=== PATIENT | male | born 1995 | race Caucasian/White ===

== ENCOUNTER 2016-12-23 13:31 | Emergency (ER) | payer SELFPAY ==
[2016-12-23 13:50] VITALS: TEMP 98.5
--- NOTE | 2016-12-23 14:19 | RAD ---
EXAM DESCRIPTION: Lumbar spine 3 views CLINICAL HISTORY: 21 y/o ,M, pain 1 week post injury COMPARISON: None. IMPRESSION: No acute fracture. There is multilevel disk height loss throughout the lumbar spine indicating degenerative disc disease. Slight lucency in the pars region L5 but no spondylolisthesis. This is probably artifact or less likely a unilateral pars defect. No evidence of acute osseous abnormality Electronically signed by: Isaac Ryder MD 12/23/2016 14:18
--- NOTE | 2016-12-23 14:43 | ED.PDOC ---
History of Present Illness - General Chief Complaint: Back Pain or Injury Stated Complaint: back pain Time Seen by Provider: 12/23/16 13:44 Source: patient Exam Limitations: no limitations - History of Present Illness Initial Comments: The patient is a 21-year-old male presenting to the emergency room secondary to low back pain for the last week. He was at work and attempted to catch a palate that was falling. He has had low back discomfort slightly more to the left than right adjacent to L3-L5 since that time. It did not fall on top of him. There is no bruising or deformity. He has no radicular symptoms. He has no incontinence. He has no sensory or strength changes of his lower extremities. He has simply reporting persistent pain in the area primarily adjacent to the spine at that level. Timing/Duration: 1 week Severity: moderate Improving Factors: immobilization Worsening Factors: movement Associated Symptoms: denies symptoms Allergies/Adverse Reactions: Allergies NO KNOWN ALLERGY Allergy (Unverified 09/14/14 11:47) Home Medications: Ambulatory Orders Hiynmrfdaifwa-Osxd-Sylhmjlqvu [Fioricet] 1 ea PO Q8H PRN #21 tab 12/23/16 Cyclobenzaprine HCl [Flexeril] 5 mg PO TID PRN #30 tab 12/23/16 predniSONE [Prednisone] 20 mg PO DAILY #5 tab 12/23/16 Review of Systems - Review of Systems Constitutional: States: no symptoms reported EENTM: States: no symptoms reported Respiratory: States: no symptoms reported Cardiology: States: no symptoms reported Gastrointestinal/Abdominal: States: no symptoms reported Genitourinary: States: no symptoms reported Musculoskeletal: States: see HPI Skin: States: no symptoms reported Endocrine: States: no symptoms reported All other Systems: No Change from Baseline Past Medical History (General) - Patient Medical History Hx Stroke: No Hx Congestive Heart Failure: No Hx Diabetes: No Hx MRSA: Yes MRSA Source:: Wound Surgical History: no surgical history - Vaccination History Hx Tetanus, Diphtheria Vaccination: No Hx Influenza Vaccination: Yes Hx Pneumococcal Vaccination: No - Social History Hx Tobacco Use: No Hx Alcohol Use: Yes - occasional Hx Substance Use: No Hx Substance Use Treatment: No Hx Depression: No - Activities of Daily Living Hospice Agency (if applicable):: None - Female History Patient is a Female of Child Bearing Age (10 -59 yrs old): No Patient : No Family Medical History - Family History Mother Family History: No Known Living Status: Still Living Physical Exam - Physical Exam General Appearance: Alert, Comfortable, No apparent distress Eye Exam: bilateral normal Ears, Nose, Throat: normal ENT inspection, normal pharynx Neck: non-tender, full range of motion, supple Respiratory: no respiratory distress, no accessory muscle use Cardiovascular/Chest: normal peripheral pulses, no edema Peripheral Pulses: radial,right: 2+, radial,left: 2+, dorsalis pedis,right: 2+, dorsalis pedis,left: 2+ Gastrointestinal/Abdominal: normal bowel sounds, non tender, soft Rectal Exam: deferred Back Exam: no vertebral tenderness, other - see history of present illness Extremity: normal range of motion, non-tender, normal inspection, no pedal edema , no calf tenderness, normal capillary refill 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 X-ray of the lumbar spine shows no evidence of acute injury. He can use topical heat in the form of icy hot or Biofreeze or a heating pad. He needs to do stretches for his lower back. He will be written for Flexeril as a muscle relaxer, Fioricet as a pain medication and he will be written for prednisone for 5 days as an anti-inflammatory. He needs to follow up with his primary care doctor if he is not improving within the next week. He needs to return to the emergency room if he is acutely worsening at any point. Departure - Departure Clinical Impression: Lumbar strain Qualifiers: Encounter type: initial encounter Qualifier Code: (S39.012A) Strain of muscle, fascia and tendon of lower back, initial encounter Disposition: Discharge to Home or Self Care Condition: Fair Departure Forms: ED Discharge - Pt. Copy, Patient Portal Self Enrollment Instructions: DI for Low Back Pain Diet: regular diet Activity: increase activity as tolerated Referrals: SAM RAMIREZ [Primary Care Provider] - 1-2 Weeks Prescriptions: Dohbrdxapmuxk-Cref-Juvezxhomt [Fioricet] 1 ea PO Q8H PRN #21 tab PRN Reason: Pain Cyclobenzaprine HCl [Flexeril] 5 mg PO TID PRN #30 tab PRN Reason: Muscle Spasms predniSONE [Prednisone] 20 mg PO DAILY #5 tab Home Medications: Ambulatory Orders Zehsgnhadwujl-Iupm-Aqyetcmrks [Fioricet] 1 ea PO Q8H PRN #21 tab 12/23/16 Cyclobenzaprine HCl [Flexeril] 5 mg PO TID PRN #30 tab 12/23/16 predniSONE [Prednisone] 20 mg PO DAILY #5 tab 12/23/16 Additional Instructions: the patient is a 21-year-old male presenting to the emergency room with low back pain after an injury at work last week. X-ray of the lumbar spine shows no evidence of acute injury. He can use topical heat in the form of icy hot or Biofreeze or a heating pad. He needs to do stretches for his lower back. He will be written for Flexeril as a muscle relaxer, Fioricet as a pain medication and he will be written for prednisone for 5 days as an anti-inflammatory. He needs to follow up with his primary care doctor if he is not improving within the next week. He needs to return to the emergency room if he is acutely worsening at any point.
[2016-12-23 15:28] VITALS: BP 128/81; O2SAT 97
== END 2016-12-23 15:25 | disposition home or self-care (01) ==
LOC: ER 13:31
DX: S39.012A Strain of muscle, fascia and tendon of lower back, initial encounter (principal); X58.XXXA Exposure to other specified factors, initial encounter; Y99.0 Civilian activity done for income or pay

== ENCOUNTER 2017-10-03 15:21 | Emergency (ER) | payer SELFPAY ==
[2017-10-03 15:34] VITALS: TEMP 99
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
[2017-10-03 17:12] VITALS: BP 152/87; O2SAT 99
== END 2017-10-03 16:35 | disposition home or self-care (01) ==
LOC: ER 15:21
DX: S90.32XA Contusion of left foot, initial encounter (principal); V28.4XXA Motorcycle driver injured in noncollision transport accident in traffic accident, initial encounter; Y92.410 Unspecified street and highway as the place of occurrence of the external cause

== ENCOUNTER 2018-03-28 00:56 | Emergency (ER) | payer SELFPAY ==
[2018-03-28] MEDS ORDERED: PANTOPRAZOLE SODIUM IV 40 MG VIAL IV ONE (01:41)
--- NOTE | 2018-03-28 01:52 | ED.PDOC ---
History of Present Illness - General Chief Complaint: GI Problem Stated Complaint: vomiting blood Time Seen by Provider: 03/28/18 01:39 Information Source: patient - History of Present Illness Initial Comments: patient comes in today for upper GI bleed. Patient states for the past year he' s had intermittent bouts of esophageal and abdominal discomfort followed by emesis with some bleeding. Patient states it's usually not much at times is just spotting and other times it seems to be less than half a cup. However, today patient had a 30 minute bout of emesis that started off stained with slight peak material and quickly became bright red and then became a deeper red but continued to be bleeding for approximately 30 minutes. Patient became weak and very concerned that the symptoms had worsened so severely. Patient has thought for some time that he may have a stomach ulcer as he does like a lot of spicy foods. He does have some heartburn and reflux at times but no abdominal pain. He has not noticed any changes in his bowels but admits he does not normally look. He has never seen a doctor for this as he does not have medical insurance and does not routinely go to the doctor's office. Patient is complaining of pain in the epigastric area with bouts of emesis that feels like a tearing sensation without shortness of breath or diaphoresis. She has no bleeding disorders and no family history of bleeding disorders. He drinks only occasionally and states that he may drink once or twice a week and very rarely binge drinks. He does occasionally take aspirin or ibuprofen and last dose was earlier today but prior to that had been several weeks before he have to take anything [id number]-[id number]. Patient smokes very rarely. Patient had 1 cigarette within the last week but prior to that had been 2 years. He does occasionally use marijuana but uses no other illicit drugs. Abdominal Pain Onset Location: epigastric Pain Radiation: no radiation Quality: severe, burning, sharpness Timing/Duration: 1 hour Improving Factors: nothing Worsening Factors: nothing Associated Symptoms: denies symptoms Review of Systems - Review of Systems Constitutional: States: weakness. Denies: chills, fever EENTM: States: no symptoms reported Respiratory: States: no symptoms reported. Denies: cough, short of breath, wheezing Cardiology: Denies: chest pain, edema, palpitations, syncope Gastrointestinal/Abdominal: States: see HPI Genitourinary: Denies: no symptoms reported Past Medical History (General) - Patient Medical History Hx Stroke: No Hx Asthma: No Hx Congestive Heart Failure: No Hx Hypertension: No Hx Diabetes: No Hx Gastroesophageal Reflux: No Hx MRSA: Yes MRSA Source:: Wound Surgical History: no surgical history - Vaccination History Hx Tetanus, Diphtheria Vaccination: Yes - out of date currently Hx Influenza Vaccination: No Hx Pneumococcal Vaccination: No - Social History Hx Tobacco Use: No Hx Alcohol Use: Yes Hx Substance Use: No Hx Substance Use Treatment: No Hx Depression: No - Female History Patient : No Family Medical History - Family History Mother Family History: No Known Living Status: Still Living Physical Exam - Physical Exam General Appearance: Anxious, Ill Appearing Eyes, Ears, Nose, Throat Exam: PERRL/EOMI, normal ENT inspection, TMs normal, pharynx normal, scleral icterus (R) Neck: non-tender, full range of motion, supple, normal inspection, other - no subcutaneous emphysema Respiratory: chest non-tender, lungs clear, normal breath sounds, no respiratory distress, no accessory muscle use Cardiovascular/Chest: normal peripheral pulses, regular rate, rhythm, no edema, no gallop, no JVD, no murmur - no tenderness to chest wall, no bruising, no subcutaneous emphysema Gastrointestinal/Abdominal: normal bowel sounds, non tender, soft, no pulsatile mass Rectal Exam: normal exam, normal rectal tone Neurologic: alert, oriented x 3 Progress - Progress Progress: 03/28/18 03:09 Laboratory Results WBC 8.1 K/mm3 (4.8-10.8) 03/28/18 01:41 RBC 5.91 M/mm3 (4.70-6.10) 03/28/18 01:41 Hgb 16.9 gm/dL (14.0-18.0) 03/28/18 01:41 Hct 49.8 % (42.0-52.0) 03/28/18 01:41 MCV 84.2 fl (80.0-94.0) 03/28/18 01:41 MCH 28.5 pg (27.0-31.0) 03/28/18 01:41 MCHC 33.9 g/dL (33.0-37.0) 03/28/18 01:41 RDW 13.3 % (11.5-14.5) 03/28/18 01:41 Plt Count 262 K/mm3 (130-400) 03/28/18 01:41 MPV 8.0 fl (7.40-10.4) 03/28/18 01:41 Absolute Neuts (auto) 4.50 K/uL (1.8-6.8) 03/28/18 01:41 Absolute Lymphs (auto) 2.70 K/uL (1.0-3.4) 03/28/18 01:41 Absolute Monos (auto) 0.70 K/uL (0.2-0.8) 03/28/18 01:41 Absolute Eos (auto) 0.00 K/uL (0.0-0.4) 03/28/18 01:41 Absolute Basos (auto) 0.10 K/uL (0.0-0.1) 03/28/18 01:41 Neutrophils % 55.6 % (42.0-78.0) 03/28/18 01:41 Lymphocytes % 33.8 % (20.0-50.0) 03/28/18 01:41 Monocytes % 8.9 % (2.0-9.0) 03/28/18 01:41 Eosinophils % 0.6 % (1.0-5.0) L 03/28/18 01:41 Basophils % 1.1 % (0.0-2.0) 03/28/18 01:41 PT 11.5 SECONDS (9.4-12.5) 03/28/18 01:41 INR 0.990 03/28/18 01:41 PTT (SP) 28.6 SECONDS (25.1-36.5) 03/28/18 01:41 Sodium 141 mmol/L (135-145) 03/28/18 01:41 Potassium 3.7 mmol/L (3.6-5.0) 03/28/18 01:41 Chloride 102 mmol/L (101-111) 03/28/18 01:41 Carbon Dioxide 28 mmol/L (21-31) 03/28/18 01:41 Anion Gap 14.7 (12-18) 03/28/18 01:41 BUN 16 mg/dL (7-18) 03/28/18 01:41 Creatinine 1.36 mg/dL (0.6-1.3) H 03/28/18 01:41 BUN/Creatinine Ratio 11.8 (10-20) 03/28/18 01:41 Random Glucose 91 mg/dL (70-105) 03/28/18 01:41 Serum Osmolality 282.0 mOsm/L (275-295) 03/28/18 01:41 Calcium 9.9 mg/dL (8.4-10.2) 03/28/18 01:41 Total Bilirubin 1.1 mg/dL (0.2-1.0) H 03/28/18 01:41 AST 31 IU/L (10-42) 03/28/18 01:41 ALT 54 IU/L (10-60) 03/28/18 01:41 Alkaline Phosphatase 66 IU/L (42-121) 03/28/18 01:41 Serum Total Protein 8.4 gm/dL (6.4-8.2) H 03/28/18 01:41 Albumin 5.0 g/dl (3.2-5.5) 03/28/18 01:41 Globulin 3.4 gm/dL (2.3-3.5) 03/28/18 01:41 Albumin/Globulin Ratio 1.5 (1.1-1.9) 03/28/18 01:41 Gastric Fluid pH 5.0-7.0 03/28/18 02:00 Gastric Occult Blood Positive 03/28/18 02:00 Stool Occult Blood Negative 03/28/18 01:59 Abdomen/Chest Xray: normal no acute changes Departure - Departure Clinical Impression: Upper GI bleed Disposition: Transfer to Hospital Condition: Fair Departure Forms: ED Discharge - Pt. Copy, Patient Portal Self Enrollment Diet: other - NPO Comments: accepted by Dr. Aaron at 0354 at [facility]
--- NOTE | 2018-03-28 02:54 | RAD ---
Procedure: XR ABDOMEN 1 VIEW (KUB) Exam Date: 03/28/2018 Ordering Provider: CEDRIC GRIFFIN Clinical Indication: Pain, poss esophageal tear Comparison: None Findings: There is no bowel distention. There is no pneumoperitoneum. There are no suspicious calcifications. There is no acute osseous abnormality. Impression: 1. No acute findings. Electronically signed by: Robin Coleman MD 03/28/2018 2:53 AM CDT
--- NOTE | 2018-03-28 02:57 | RAD ---
Procedure: XR CHEST 2 VIEWS Exam Date: 03/28/2018 Ordering Provider: CEDRIC GRIFFIN Clinical Indication: Pain, poss esophageal tear Comparison: None Findings: Cardiomediastinal silhouette: Unremarkable Pulmonary vasculature : Unremarkable Focal lung consolidation: None Pleural effusion: None Pneumothorax: None Bones and soft tissues: Nonacute Impression: 1. No acute abnormalities in the chest. Electronically signed by: Robin Coleman MD 03/28/2018 2:55 AM CDT
[2018-03-28 03:23] VITALS: O2SAT 95
[2018-03-28] MEDS ORDERED: SODIUM CHLORIDE 0.9% 1000ML 1,000 ML IVS ONE (03:53)
[2018-03-28 04:32] VITALS: BP 135/89; TEMP 97.4
== END 2018-03-28 04:37 | disposition short-term general hospital (02) ==
LOC: ER 00:56
DX: K92.2 Gastrointestinal hemorrhage, unspecified (principal); F17.210 Nicotine dependence, cigarettes, uncomplicated
CPT/HCPCS: 36415; 71046; 74018; 80053; 82270; 82271; 83986; 85025; 85610; 85730; J7030

== ENCOUNTER 2018-11-18 07:21 | Emergency (ER) | payer SELFPAY ==
--- NOTE | 2018-11-18 07:27 | ED.PDOC ---
History of Present Illness - General Time Seen by Provider: 11/18/18 07:25 Source: patient, RN notes reviewed, Vital Signs reviewed Exam Limitations: no limitations Additional Information: 23 YEAR OLD HERE WITH COMPLAINTS OF PAIN AT THE TAIL END OF HIS BACK FOR THE PAST 4-5 DAYS HE WAS SEEN AT URGENT CARE GIVEN NAPROSYN AND PREDNISONE NOT BETTER THEREFORE HE IS HERE FOR FURTHER EVALUATION PT CRYSTAL ANY TRAUMA HIS PAIN IS GETTING WORSE HE IS NOT ABLE TO WALK OR SIT WITHOUT DISCOMFORT PE HE IS IN DISCOMFORT EXAM OF THE BACK THERE IS A PILONIDAL ABSCESS AT THE CLEFT 4X3 CM IN SIZE VERY TENDER TO PALPALTE - History of Present Illness Severity: moderate Associated Symptoms: denies symptoms Allergies/Adverse Reactions: Allergies NO KNOWN ALLERGY Allergy (Verified 11/18/18 07:36) Home Medications: Ambulatory Orders Acetamin W/Cod #3 Tab [Tylenol w/CODEINE #3] 1 ea PO Q6HR PRN #40 tab 11/18/18 Naproxen 250 mg PO DAILY 11/18/18 Prednisone 5 mg PO DAILY 11/18/18 Sulfa/Trimeth 800/160 (Ds) Tab [Bactrim DS Tab] 1 ea PO Q12HR #20 tab 11/18/18 Review of Systems - Review of Systems Constitutional: States: no symptoms reported EENTM: States: no symptoms reported Respiratory: States: no symptoms reported Cardiology: States: no symptoms reported Gastrointestinal/Abdominal: States: no symptoms reported Genitourinary: States: no symptoms reported Musculoskeletal: States: back pain Skin: States: no symptoms reported Neurological: States: no symptoms reported Endocrine: States: no symptoms reported Hematologic/Lymphatic: States: no symptoms reported Past Medical History (General) - Patient Medical History Hx Stroke: No Hx Asthma: No Hx Congestive Heart Failure: No Hx Hypertension: No Hx Diabetes: No Hx Gastroesophageal Reflux: No Hx MRSA: Yes MRSA Source:: Wound - Vaccination History Hx Tetanus, Diphtheria Vaccination: Yes - out of date currently Hx Influenza Vaccination: No Hx Pneumococcal Vaccination: No - Social History Hx Tobacco Use: No Hx Alcohol Use: Yes Hx Substance Use: No Hx Substance Use Treatment: No Hx Depression: No - Female History Patient : No Family Medical History - Family History Mother Family History: No Known Living Status: Still Living Physical Exam - Physical Exam General Appearance: Alert, Well Developed, Well Groomed, Well Hydrated, Well Nourished Eye Exam: bilateral normal Ears, Nose, Throat: hearing grossly normal, normal ENT inspection Neck: non-tender, full range of motion, supple Respiratory: chest non-tender, lungs clear, normal breath sounds, no respiratory distress, no accessory muscle use Cardiovascular/Chest: normal peripheral pulses, regular rate, rhythm, no edema, no gallop, no JVD, no murmur Gastrointestinal/Abdominal: normal bowel sounds, non tender, soft, no organomegaly, no pulsatile mass 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, no motor/sensory deficits, alert, normal mood/affect, oriented x 3 Skin Exam: normal color, warm/dry, other - pilonidal abscess noted at the cleft Lymphatic: no adenopathy Procedures - Image Front/Back of Body: 1 - pilonidal abscess - Incision and Drainage #1 Procedure and Prep: betadine prep, sterile drapes applied, sterile dressings applied, gauze wick placed, pus drained Blade Size: 11 Procedure Comments: USINF 1 % LIDOCAINE ABSCESS WAS DRAINED ABOUT 30 CC OF PUS OBTAINED CLEANED WITH GAUZE THEN PACKED WITH 1/4 INCH GAUZE Departure - Departure Clinical Impression: Pilonidal abscess of cleft, Abscess Time of Disposition: 07:49 Disposition: Discharge to Home or Self Care Condition: Good Diet: resume usual diet Prescriptions: Acetamin W/Cod #3 Tab [Tylenol w/CODEINE #3] 1 ea PO Q6HR PRN #40 tab PRN Reason: Mild To Moderate Pain Sulfa/Trimeth 800/160 (Ds) Tab [Bactrim DS Tab] 1 ea PO Q12HR #20 tab Home Medications: Ambulatory Orders Acetamin W/Cod #3 Tab [Tylenol w/CODEINE #3] 1 ea PO Q6HR PRN #40 tab 11/18/18 Naproxen 250 mg PO DAILY 11/18/18 Prednisone 5 mg PO DAILY 11/18/18 Sulfa/Trimeth 800/160 (Ds) Tab [Bactrim DS Tab] 1 ea PO Q12HR #20 tab 11/18/18
[2018-11-18] MEDS ORDERED: LIDOCAINE 1% 10 ML VIAL INJ ONE ×2 (07:31→07:38)
[2018-11-18] MEDS ORDERED: PLAIN PACKING STRIP 1 1 EA BTTL TOP ONE (07:38)
[2018-11-18] MEDS ORDERED: IODOFORM PACKING 1/2 INCH 1 EA BTTL TOP ONE (07:44)
[2018-11-18 08:04] VITALS: BP 158/93; TEMP 97.7; O2SAT 98
== END 2018-11-18 08:00 | disposition home or self-care (01) ==
LOC: ER 07:21
DX: L05.01 Pilonidal cyst with abscess (principal); Z86.14 Personal history of Methicillin resistant Staphylococcus aureus infection